=== PATIENT | female | born 1955 | race Caucasian/White ===

== ENCOUNTER 2018-11-06 10:14 | Emergency (ER) | payer OTHER ==
[~2018-11-06] VITALS: Ht 152.4 cm; Wt 62.1 kg
[2018-11-06 10:32] VITALS: Ht 152.4 cm; Wt 62.1 kg
[2018-11-06 13:45] VITALS: BP 149/82
== END 2018-11-06 15:03 | disposition home or self-care (01) ==
LOC: ED 10:14
DX: S30.0XXA Contusion of lower back and pelvis, initial encounter (principal); I10 Essential (primary) hypertension; W11.XXXA Fall on and from ladder, initial encounter; Y93.89 Activity, other specified; Y92.89 Other specified places as the place of occurrence of the external cause; Y99.8 Other external cause status